=== PATIENT | female | born 1985 | race Caucasian/White ===

== ENCOUNTER 2017-06-07 11:58 | Day surgery (SDC) | payer OTHER ==
[2017-06-07] MEDS ORDERED: CLINDAMYCIN 600 MG/D5W (PMX) 50 ML IVPB (12:00)
[2017-06-07] MEDS ORDERED: SOD CHLORIDE 0.9% 1,000 ML IV (12:00)
[2017-06-07] MEDS ORDERED: MIDAZOLAM 1 MG/ML 2 ML INJ (14:25)
[2017-06-07] MEDS ORDERED: ROCURONIUM 50 MG INJ (14:25)
[2017-06-07] MEDS ORDERED: PROPOFOL 20 ML (14:25)
[2017-06-07] MEDS ORDERED: LIDOCAINE 1% (MDV) 20 ML INJ (14:25)
[2017-06-07] MEDS ORDERED: DEXAMETHASONE 4 MG/ML 1 ML INJ (14:38)
[2017-06-07] MEDS ORDERED: ONDANSETRON 4 MG INJ (14:38)
[2017-06-07] MEDS: BUPIVACAINE 0.25%/EPI (SDV) 30 ML INJ (14:44)
[2017-06-07] MEDS ORDERED: ROPIVACAINE 0.2% 20 ML VIAL (15:05)
[2017-06-07] MEDS ORDERED: SUGAMMADEX SODIUM 200 MG/2 ML VIAL IV (15:14)
[2017-06-07] MEDS ORDERED: IBUPROFEN 600 MG TAB PO (15:30)
[2017-06-07] MEDS: KETOROLAC 30 MG INJ IV (15:44)
[2017-06-07] MEDS: HYDROmorphONE (0.2 MG/ML) 10ML SYG IV ×2 (15:44→16:02)
[2017-06-07] MEDS ORDERED: LORAZEPAM 2 MG INJ IV (16:00)
[2017-06-07] MEDS ORDERED: HYDROmorphONE (0.2 MG/ML) 10ML SYG IV (16:00)
== END 2017-06-07 18:00 | disposition home or self-care (01) ==
LOC: SDS 11:58
DX: K42.9 Umbilical hernia without obstruction or gangrene (principal)
CPT/HCPCS: 49585; 84703